=== PATIENT | female | born 1950 | race Caucasian/White ===

== ENCOUNTER 2016-10-01 15:01 | Outpatient (CLI) | payer OTHER | END 2016-10-01 15:02 | disposition home or self-care (01) | DX: N20.0 Calculus of kidney (principal) ==

== ENCOUNTER 2017-07-10 09:34 | Outpatient (CLI) | payer OTHER | END 2017-07-10 09:35 | disposition home or self-care (01) | LOC: DI.N 09:34 | PROVIDERS: ATTEND Family Medicine | DX: Z53.9 Procedure and treatment not carried out, unspecified reason (principal) ==

== ENCOUNTER 2017-07-18 11:21 | Outpatient (CLI) | payer OTHER ==
--- NOTE | 2017-07-18 15:24 | Ultrasound Report ---
UNILATERAL RIGHT BREAST ULTRASOUND: 07/18/2017 INDICATION: Right breast pain, somewhat focal. TECHNIQUE: Sonographic evaluation of the right axilla down to the right breast was performed in the a anson of pain approximately 11 o'clock position. FINDINGS: No mass, dilated ducts, or other abnormalities are demonstrated on ultrasound. IMPRESSION: 1. BIRADS CATEGORY 1-NEGATIVE. 2. RECOMMEND ANNUAL SCREENING MAMMOGRAM. JOB #: [id number] EXT JOB #:[id number]
--- NOTE | 2017-07-18 15:32 | Mammography Report ---
DIGITAL BILATERAL DIAGNOSTIC MAMMOGRAM AND RIGHT BREAST ULTRASOUND: 07/18/2017 COMPARISON: Mammogram of 07/08/2016. INDICATION: Right axilla and right breast pain. TECHNIQUE: Bilateral MLO and CC breast views. Focused sonography of the right breast at approximately 11 o'clock in the axilla down to the breast. FINDINGS: The breast parenchyma is heterogeneously dense which may limit the sensitivity of mammography. There are stable postoperative changes of the right breast. A marker had been placed about the outer upper right breast near the axilla. No dominant mass, architectural distortion, or concerning cluster of microcalcifications are seen. Focused sonography of the right breast at approximately 11 o'clock in the area of concern shows no ma ss or other focal abnormality. IMPRESSION: 1. BIRADS CATEGORY 1-NEGATIVE. NEGATIVE IMAGING DOES NOT PRECLUDE THE FURTHER WORKUP OF A CLINICALLY CONCERNING ABNORMALITY. PLEASE CORRELATE CLINICALLY IN THIS REGARD. 2. IN THE ABSENCE OF ADDITIONAL CLINICAL CONCERNS, RECOMMEND ANNUAL SCREENING MAMMOGRAPHY. STANDARD QUALIFYING STATEMENTS 1. This examination was reviewed with the aid of Computer-Aided Detection (CAD). 2. A negative or benign imaging report should not delay biopsy if clinically suspicious findings are present. Consider surgical consultation if warranted. More than 5% of cancers are not identified by pawan brock. 3. Dense breasts may obscure an underlying neoplasm. JOB #: [id number] EXT JOB #:[id number]
== END 2017-07-18 11:22 | disposition home or self-care (01) ==
LOC: DI 11:21
PROVIDERS: ATTEND Family Medicine
DX: N64.4 Mastodynia (principal)
CPT/HCPCS: 76642; 77066

== ENCOUNTER 2018-07-22 11:12 | Outpatient (CLI) | payer MEDICARE, OTHER ==
--- NOTE | 2018-07-23 11:13 | Mammography Report ---
Reason: ANNUAL Procedure Date: 07/22/2018 Accession Number: [id number] / [id number] Procedure: [facility] - Screening Mammo w/Nikolas CPT Code: FULL RESULT: EXAM: Screening Mammo w/Nikolas DATE: 07/22/2018 12:02 AM CLINICAL HISTORY: 67-year-old female with personal history of right breast cancer status post lumpectomy with axillary node resection and radiation in 2003. TECHNIQUE: Bilateral CC and MLO views were obtained. COMPARISON: 07/18/2017, 07/08/2016, 09/01/2015, 07/19/2014. FINDINGS: The breasts demonstrate heterogeneously dense fibroglandular parenchyma bilaterally. Posttreatment changes are again seen in the right breast. No suspicious masses, clustered microcalcifications, or regions of architectural distortion are identified. IMPRESSION: Benign findings RECOMMENDATION: Routine annual screening unless otherwise clinically indicated. BIRADS CATEGORY 2: Benign findings STANDARD QUALIFYING STATEMENTS: 1. This examination was not reviewed with the aid of Computer-Aided Detection (CAD). 2. A negative or benign imaging report should not delay biopsy if clinically suspicious findings are present. Consider surgical consultation if warrented. More than 5% of cancers are not identified by imaging. 3. Dense breasts may obscure an underlying neoplasm. 4. This examination was reviewed with the aid of 3D breast imaging (tomosynthesis).
== END 2018-07-22 11:13 | disposition home or self-care (01) ==
LOC: DI 11:12
DX: Z12.31 Encounter for screening mammogram for malignant neoplasm of breast (principal); Z85.3 Personal history of malignant neoplasm of breast
CPT/HCPCS: 77063; 77067

== ENCOUNTER 2018-08-28 15:28 | Outpatient (CLI) | payer MEDICARE, OTHER | END 2018-08-28 15:29 | disposition home or self-care (01) | LOC: RT 15:28 | PROVIDERS: ATTEND Internal Medicine Cardiovascular Disease | DX: I47.1 Supraventricular tachycardia (principal) | CPT/HCPCS: 93005 ==

== ENCOUNTER 2019-10-26 08:58 | Outpatient (CLI) | payer MEDICARE, OTHER ==
--- NOTE | 2019-10-27 11:53 | Mammography Report ---
Reason: ROUTINE MAMMO Procedure Date: 10/26/2019 Accession Number: [id number] / [id number] Procedure: [facility] - Screening Mammo w/Nikolas CPT Code: Final Report FULL RESULT: EXAM: Screening Mammo w/Nikolas DATE: 10/26/2019 9:42 AM CLINICAL HISTORY: Prior right lumpectomy for breast cancer with radiation and chemotherapy. TECHNIQUE: (B) - Bilateral CC and MLO views were obtained. COMPARISON: 07/22/2018, 07/18/2017, 07/08/2016, 09/01/2015, 07/19/2014, 07/14/2013, 07/09/2012 and 07/05/2011 PARENCHYMAL PATTERN: (A) - The breasts demonstrate scattered fibroglandular densities bilaterally. FINDINGS: No significant interval change. Post therapy changes right breast similar to previous. There are no new suspicious masses, calcifications, or areas of distortion. IMPRESSION: Benign findings. BI-RADS category 2. RECOMMENDATION: (ANNUAL) - Recommend routine annual screening mammography. BI-RADS CATEGORY: (2) - Benign Findings. STANDARD QUALIFYING STATEMENTS: 1. This examination was not reviewed with the aid of Computer-Aided Detection (CAD). 2. A negative or benign imaging report should not preclude biopsy if clinically suspicious findings are present. 3. Dense breasts may obscure an underlying neoplasm. 4. This examination was reviewed with the aid of 3D breast imaging (tomosynthesis).
== END 2019-10-26 08:59 | disposition home or self-care (01) ==
LOC: DI 08:58
PROVIDERS: ATTEND Family Medicine
DX: Z12.31 Encounter for screening mammogram for malignant neoplasm of breast (principal); Z85.3 Personal history of malignant neoplasm of breast; Z92.21 Personal history of antineoplastic chemotherapy; Z92.3 Personal history of irradiation
CPT/HCPCS: 77063; 77067

== ENCOUNTER 2019-10-26 08:59 | Outpatient (CLI) | payer MEDICARE, OTHER ==
--- NOTE | 2019-10-27 10:46 | DEXA Report ---
Reason: POSTMENOPAUSAL Procedure Date: 10/26/2019 Accession Number: [id number] / [id number] Procedure: DEX - Dexa Spine and/or Hip CPT Code: Final Report FULL RESULT: EXAM: Dexa Spine and/or Hip DATE: 10/26/2019 9:20 AM CLINICAL HISTORY: POSTMENOPAUSAL TECHNIQUE: Dual energy x-ray absorptiometry (DXA) was performed on a [employer] System. Regions measured are the AP Spine, femoral neck, and if needed forearm. COMPARISON: None. In accordance with the International Society for Clinical Densitometry (ISCD) guidelines, data from previous exams may be reanalyzed using current recommendations and techniques. This is done to allow a more accurate basis for comparison with the current study. FINDINGS: The data for the lumbar spine is as follows: BMD (g/cm/cm) T-SCORE Z-SCORE REGION L1 0.963 -1.4 0.2 L2 0.975 -1.9 -0.3 L3 1.148 -0.4 1.1 L4 1.066 -1.1 0.5 TOTAL 1.042 -1.1 0.4 NOTE: All evaluable vertebrae are used for classification The data for the hip is as follows: BMD (g/cm/cm) T-SCORE Z-SCORE REGION Neck 0.831 -1.5 0.1 TOTAL 0.806 -1.6 -0.3 NOTE: The femoral neck or total proximal femur, whichever is lowest, is used for classification. IMPRESSION: THE WHO CLASSIFICATION BASED ON THE INTERNATIONAL REFERENCE STANDARD IS OSTEOPENIA, REFERENCE TOTAL LEFT HIP. THE FRACTURE RISK IS INCREASED. RECOMMENDATION: Patients with diagnosis of osteoporosis or osteopenia should have regular bone mineral density assessment. For those eligible for Medicare, routine testing is allowed once every 2 years. Testing frequency can be increased for patients who have rapidly progressing disease or for those who are receiving medical therapy to restore bone mass. COMMENT: World Health Organization (WHO) definitions for osteoporosis and osteopenia: NORMAL BMD: T-score at -1.0 or higher, fracture risk is low OSTEOPENIA BMD: T-score between -1.0 and -2.5, fracture risk is increased. OSTEOPOROSIS BMD: T-score at -2.5 or lower, fracture risk is high. National Osteoporosis Foundation recommends: 1. Obtain adequate dietary calcium (at least 1200 mg per day) and vitamin D (400-800 international units per day). 2. Participate, as appropriate, in regular weightbearing and muscle-strengthening exercise. 3. Avoid tobacco use and reduce alcohol and caffeine intake. 4. For more detailed information see the website at www.NOF.org.
== END 2019-10-26 09:00 | disposition home or self-care (01) ==
LOC: DI 08:59
PROVIDERS: ATTEND Family Medicine
DX: M85.89 Other specified disorders of bone density and structure, multiple sites (principal); Z78.0 Asymptomatic menopausal state
CPT/HCPCS: 77080

== ENCOUNTER 2020-10-24 09:55 | Outpatient (CLI) | payer MEDICARE, OTHER ==
--- NOTE | 2020-10-25 14:59 | Mammography Report ---
BILATERAL DIGITAL SCREENING MAMMOGRAM 3D/2D: 10/24/2020 CLINICAL: Routine screening. Personal history of right breast cancer. Comparison is made to exams dated: 10/26/2019 mammogram, 07/22/2018 mammogram, 07/18/2017 mammogram, 1 ultrasound, 07/08/2016 mammogram - [facility], and 09/01/2015 mammogram - [facility]. There are scattered fibroglandular elements in both breasts. There are benign post operative findings in the right breast. No significant masses, calcifications, or other findings are seen in either breast. There has been no significant interval change. IMPRESSION: BENIGN There is no mammographic evidence of malignancy. A 1 year screening mammogram is recommended. This exam was interpreted at Station ID: [id number]. NOTE: For mammograms, a report in lay terms will be sent to the patient. Approximately 15% of breast malignancies will not be visualized mammographically. In the management of a palpable breast mass, a negative mammogram must not discourage biopsy of a clinically suspicious lesion. Electronically Signed By: Jacques Bo M.D. ddp/penrad:10/24/2020 13:26:51 ACR BI-RADS Category 2: Benign Finding(s) 3342F PARENCHYMAL PATTERN: (A) - The breast(s) demonstrate(s) scattered fibroglandular densities. BI-RADS CATEGORY: (2) - 2 RECOMMENDATION: (ANNUAL) - Recommend routine annual screening mammography. [id number] 1 year screening LATERALITY: (B)
== END 2020-10-24 09:56 | disposition home or self-care (01) ==
LOC: DI.N 09:55
DX: Z12.31 Encounter for screening mammogram for malignant neoplasm of breast (principal); Z08 Encounter for follow-up examination after completed treatment for malignant neoplasm; Z85.3 Personal history of malignant neoplasm of breast

== ENCOUNTER 2021-11-14 14:04 | Outpatient (CLI) | payer MEDICARE, OTHER ==
--- NOTE | 2021-11-15 11:41 | Mammography Report ---
BILATERAL DIGITAL SCREENING MAMMOGRAM 3D/2D WITH EXAGGERATED CC: 11/14/2021 CLINICAL: Routine screening. Routine screening. Personal history of right breast cancer. Comparison is made to exams dated: 10/24/2020 mammogram, 10/26/2019 mammogram, 07/18/2017 mammogram, and 07/08/2016 mammogram - [facility]. There are scattered fibroglandular elements in both breasts. There are benign post operative findings in the right breast. No significant masses, calcifications, or other findings are seen in either breast. There has been no significant interval change. IMPRESSION: BENIGN There is no mammographic evidence of malignancy. A 1 year screening mammogram is recommended. This exam was interpreted at Station ID: [id number]. NOTE: For mammograms, a report in lay terms will be sent to the patient. Approximately 15% of breast malignancies will not be visualized mammographically. In the management of a palpable breast mass, a negative mammogram must not discourage biopsy of a clinically suspicious lesion. Electronically Signed By: Larry harmon/camacho:11/15/2021 09:53:26 ACR BI-RADS Category 2: Benign Finding(s) 3342F PARENCHYMAL PATTERN: (A) - The breast(s) demonstrate(s) scattered fibroglandular densities. BI-RADS CATEGORY: (2) - 2 RECOMMENDATION: (ANNUAL) - Recommend routine annual screening mammography. [id number] 1 year screening LATERALITY: (B)
== END 2021-11-14 14:05 | disposition home or self-care (01) ==
LOC: DI.S 14:04
DX: Z12.31 Encounter for screening mammogram for malignant neoplasm of breast (principal); Z85.3 Personal history of malignant neoplasm of breast

== ENCOUNTER 2022-11-01 12:52 | Outpatient (CLI) | payer MEDICARE, OTHER ==
--- NOTE | 2022-11-04 09:50 | Mammography Report ---
BILATERAL DIGITAL SCREENING MAMMOGRAM 3D/2D WITH EXAGGERATED CC: 11/01/2022 CLINICAL: Routine screening. Personal history of right breast cancer. Comparison is made to exams dated: 11/14/2021 mammogram, 10/24/2020 mammogram, 10/26/2019 mammogram, 06/24 mammogram, 07/18/2017 mammogram, and 07/08/2016 mammogram - [facility]. There are scattered areas of fibroglandular density in both breasts (category b / 25%-50% glandular t issue). There are benign post operative findings in the right breast. No significant masses, calcifications, or other findings are seen in either breast. There has been no significant interval change. IMPRESSION: BENIGN There is no mammographic evidence of malignancy. A 1 year screening mammogram is recommended. This exam was interpreted at Station ID: [id number]. NOTE: For mammograms, a report in lay terms will be sent to the patient. Approximately 15% of breast malignancies will not be visualized mammographically. In the management of a palpable breast mass, a negative mammogram must not discourage biopsy of a clinically suspicious lesion. Electronically Signed By: Efren Higginbotham M.D., jr/camacho:11/01/2022 15:11:18 ACR BI-RADS Category 2: Benign Finding(s) 3342F PARENCHYMAL PATTERN: (A) - The breast(s) demonstrate(s) scattered fibroglandular densities. BI-RADS CATEGORY: (2) - 2 RECOMMENDATION: (ANNUAL) - Recommend routine annual screening mammography. [id number] 1 year screening LATERALITY: (B)
== END 2022-11-01 12:53 | disposition home or self-care (01) ==
LOC: DI 12:52
PROVIDERS: ATTEND Internal Medicine
DX: Z12.31 Encounter for screening mammogram for malignant neoplasm of breast (principal); Z85.3 Personal history of malignant neoplasm of breast

== ENCOUNTER 2023-01-08 09:04 | Outpatient (CLI) | payer MEDICARE, OTHER ==
--- NOTE | 2023-01-08 15:44 | MRI Report ---
PROCEDURE: MRI brain without contrast INDICATIONS: MEMORY IMPAIRMENT TECHNIQUE: Noncontrast axial T1 spin echo, axial T2 fast spin echo, sagittal and axial FLAIR, coronal T2 fast sp in echo, axial gradient echo, axial diffusion and ADC through the brain. COMPARISON: None. FINDINGS: Image quality: Excellent. CSF Spaces: Basal cisterns are patent. No extra-axial fluid collections. Ventricles are normal in size and shape. Brain: No intracranial masses or hemorrhage. Wilder/white matter interface is normal. Brainstem appe ars normal. Diffusion-weighted images demonstrate no acute infarct. Normal intravascular flow voids are present. Mild generalized atrophy and chronic ischemic change present. Skull and face: Calvarium has normal marrow signal. Orbits appear normal. Sinuses: Sinuses and mastoids are clear. Incidental pneumatization of the left IMPRESSION: 1. Mild atrophy and white matter chronic ischemic change without intracranial hemorrhage, infarct or mass lesion Reviewed by: Wilner Jama MD on 01/08/2023 2:42 PM [facility] Approved by: Wilner Jama MD on 01/08/2023 2:42 PM [facility] Station ID: [id number]
== END 2023-01-08 09:05 | disposition home or self-care (01) ==
LOC: DI 09:04
PROVIDERS: ATTEND Internal Medicine
DX: R41.3 Other amnesia (principal)

== ENCOUNTER 2023-07-28 08:00 | Outpatient (CLI) | payer MEDICARE, OTHER ==
[2023-07-28 07:58] LABS: CREATININE 0.7 mg/dL (0.6-1.3)
== END 2023-07-28 23:56 | disposition home or self-care (01) ==
LOC: LAB 08:00
PROVIDERS: ATTEND Internal Medicine
DX: Z79.899 Other long term (current) drug therapy (principal)
CPT/HCPCS: 36415; 82565

== ENCOUNTER 2023-08-05 08:12 | Outpatient (CLI) | payer MEDICARE, OTHER ==
--- NOTE | 2023-08-06 12:06 | CT Report ---
PROCEDURE: CHEST W INDICATIONS: EXCESSIVE WEIGHT LOSS CONTRAST: 100ml omni 300 TECHNIQUE: After the administration of intravenous contrast, 1 mm axial images were acquired from the pulmonary apices through the posterior costophrenic angles. Axial 5 mm soft tissue kernel reconstructions were performed as well as 8 mm axial MIP and coronal and sagittal 5 mm reformations. For radiation dose reduction, the following was used: automated exposure control, adjustment of mA and/or kV according to patient size. COMPARISON: None. FINDINGS: Image quality: Excellent. Lungs and pleura: There is a 4 mm subsolid nodule in the anterior left lower lobe (series 3 image 250 ), which was present on 10/01/2016, previously measuring 2 mm. No consolidation. No pleural effusions. No pneumothorax. No suspicious pulmonary nodules which require follow up. Mediastinum: Heart size is normal. No pericardial effusion. No large vessel abnormality. No mediastin al adenopathy by size criteria. Chest wall and lower neck: There is a 7 mm right thyroid nodule. No axillary or supraclavicular adeno saba by size. Mild pectus excavatum. Bones: No aggressive osseous abnormality. Degenerative changes are noted in thoracic and upper lumbar spine. Upper Abdomen: Bilateral adrenal thickening. IMPRESSION: 1. A cause for weight loss is not identified on chest CT. 2. A 4 mm; subsolid nodule in the anterior left lower lobe, which was present on 2017. It is slightly enlarged. Slow growth suggests benign etiology. Please see enclosed follow-up recommendation. 3. A 7 mm right thyroid nodule. Please correlate with thyroid function tests. Consider thyroid ultras ound for follow-up. Fleischner Society criteria for SUB-SOLID lung nodule followup. Solitary pure ground-glass nodules 5 mm or lessNo followup needed. >5 mm3 mo follow-up CT to confirm persistence. Then annual CT for 3 years. Part-solid nodules3 mo follow-up CT to confirm persistence. If persistent with solid component <5 mm , annual CT for at least 3 years. If solid component is 5 mm or more, biopsy or surgical resection. Consider PET-CT for lesions > 10 mm. Multiple sub-solid nodules Pure ground glass nodules [address] at 2 and 4 years. Pure ground glass nodules >5 mm without dominant lesion. [address] to confirm persistence, then annual followup CT for at least 3 years. Dominant nodule(s) with part-solid or solid component. [address] to confirm persistence. If persistent, consider biopsy or surgical resection, marci if lesions have >5 mm solid component. Reviewed by: Julianne Bay MD on 08/06/2023 12:05 PM PST Approved by: Julianne Bay MD on 08/06/2023 12:05 PM PST Station ID: [id number]
--- NOTE | 2023-08-06 12:30 | CT Report ---
PROCEDURE: ABDOMEN/PELVIS W INDICATIONS: EXCESSIVE WEIGHT LOSS CONTRAST: 100ml omni 300 TECHNIQUE: After the administration of oral and IV contrast, 5 mm thick sections acquired from the diaphragms to the symphysis. 5 mm thick coronal and sagittal reformats were acquired. For radiation dose reducti on, the following was used: automated exposure control, adjustment of mA and/or kV according to moose ent size. COMPARISON: CT abdomen and pelvis, 10/01/2016. FINDINGS: Image quality: Excellent. Lung bases and heart: Please see separate CT chest report. Liver: Prominent in size. Mild hepatic steatosis. No solid mass. Gallbladder and biliary tree: Normal gallbladder. No gallstones. No biliary dilation. Spleen: No splenomegaly. Pancreas: No pancreatic ductal dilation. Adrenals: Mild bilateral adrenal thickening. No discrete adrenal nodule. Kidneys and ureters: There are multiple nonobstructive renal calculi bilaterally. No hydronephrosis. No renal cystic lesion which requires follow up. No solid mass. Bowel and peritoneum: Gastric wall appears thickened although stomach is not adequately distended. No bowel distension. No pathologic free fluid. There is a large amount of stool in colon and rectum. Lymph nodes: No central or retroperitoneal adenopathy. Vessels: No infrarenal aortic aneurysm. Mild atherosclerotic calcifications. PELVIS Reproductive organs: Unremarkable. Bladder: No abnormal wall thickening, accounting for underdistension. Pelvic lymph nodes: No pelvic adenopathy by size criteria. Bones: No aggressive osseous abnormality. Grade 1 anterolisthesis of L4 on L5 and L5 on S1. Other: No significant ventral or inguinal hernia. IMPRESSION: 1. Appearance of thickening of gastric wall although stomach is not adequately distended. Differentia l diagnoses are gastritis, gastric lymphoma or gastric cancer. Recommend EGD for further evaluation. 2. Mild hepatomegaly and hepatic steatosis. 3. A large amount of stool in colon and rectum. 4. Bilateral nonobstructive renal calculi. Reviewed by: Julianne Bay MD on 08/06/2023 12:29 PM PST Approved by: Julianne Bay MD on 08/06/2023 12:29 PM PST Station ID: [id number]
== END 2023-08-05 08:13 | disposition home or self-care (01) ==
LOC: DI 08:12
PROVIDERS: ATTEND Internal Medicine
DX: R63.4 Abnormal weight loss (principal); R63.0 Anorexia; R91.1 Solitary pulmonary nodule; E04.1 Nontoxic single thyroid nodule; R16.0 Hepatomegaly, not elsewhere classified; K76.0 Fatty (change of) liver, not elsewhere classified; N20.0 Calculus of kidney

== ENCOUNTER 2023-08-28 12:27 | Outpatient (CLI) | payer MEDICARE, OTHER ==
--- NOTE | 2023-08-28 16:29 | Ultrasound Report ---
PROCEDURE: Head or Neck Soft Tissue INDICATIONS: THYROID NODULE TECHNIQUE: Real-time scanning was performed of the thyroid gland, with image documentation. COMPARISON: None FINDINGS: Right: Thyroid lobe measures 3.8 x 1.4 x 1.2 cm, and is homogeneous in echotexture. Left: Thyroid lobe measures 2.8 x 0.8 x 0.8 cm, and is homogenous in echotexture. Isthmus: 2 mm thick. Nodule number: One Location: Right superior pole Size: 0.6 x 0.4 x 0.4 cm. Composition: Solid (2 points). Echogenicity: Isoechoic (1 point). Shape: wider than tall (0 points). Margins: Smooth (0 points). Echogenic foci: None (0 points). Total points: 3 ACR TI-RADS category: TI-RADS 3: Mildly suspicious. Nodule number: Two Location: Right superior pole Size: 1.0 x 0.5 x 0.8 cm. Composition: Solid (2 points). Echogenicity: Isoechoic (1 point). Shape: wider than tall (0 points). Margins: Ill-defined (0 points). Echogenic foci: None (0 points). Total points: 3 ACR TI-RADS category: TI-RADS 3: Mildly suspicious. Nodule number: Three Location: Right inferior pole Size: 0.3 x 0.3 x 0.2 cm. Composition: Cystic / almost completely cystic (0 points). Echogenicity: Anechoic (0 points). Shape: wider than tall (0 points). Margins: Smooth (0 points). Echogenic foci: None (0 points). Total points: 0 ACR TI-RADS category: TI-RADS 1: Benign. Nodule number: Four Location: Left inferior pole Size: 0.6 x 1.0 x 0.4 cm. Composition: Solid. Echogenicity: Hypoechoic (2 points). Shape: wider than tall (0 points). Margins: Smooth (0 points). Echogenic foci: None (0 points). Total points: 2 ACR TI-RADS category: TI-RADS 2: Not suspicious. IMPRESSION: Multiple nodules as above. Recommend follow-up ultrasound in one year as per below recom mendations. ACR TI-RADS definitions and recommendations: TI-RADS 1 (benign): 0 points. FNA not needed. TI-RADS 2 (not suspicious): 2 points. FNA not needed. TI-RADS 3 (mildly suspicious): 3 points. "FNA if 2.5 cm or larger, follow up if 1.5 cm or larger (at 1, 3, and 5 years). TI-RADS 4 (moderately suspicious): 4-6 points. "FNA if 1.5 cm or larger, follow up if 1 cm or larger (at 1, 2, 3, and 5 years). TI-RADS 5 (highly suspicious): 7 points or more. "FNA if 1 cm or larger, follow up if 0.5 cm or larger (every year for 5 years). Reviewed by: Patrick Abreu on 08/28/2023 4:28 PM PST Approved by: Patrick Abreu on 08/28/2023 4:28 PM [facility] Station ID: [id number]
== END 2023-08-28 12:28 | disposition home or self-care (01) ==
LOC: DI 12:27
PROVIDERS: ATTEND Internal Medicine
DX: E04.2 Nontoxic multinodular goiter (principal)

== ENCOUNTER 2023-11-13 10:11 | Outpatient (CLI) | payer MEDICARE, OTHER ==
--- NOTE | 2023-11-14 08:39 | Mammography Report ---
BILATERAL DIGITAL SCREENING MAMMOGRAM 3D/2D: 11/13/2023 CLINICAL: Routine screening. Personal history of right breast cancer. Comparison is made to exams dated: 11/01/2022 mammogram, 11/14/2021 mammogram, 10/24/2020 mammogram, 10/26 mammogram, 07/22/2018 mammogram, and 07/18/2017 mammogram - [facility]. There are scattered areas of fibroglandular density in both breasts (category b / 25%-50% glandular t issue). There are benign post operative findings in the right breast. No significant masses, calcifications, or other findings are seen in either breast. There has been no significant interval change. IMPRESSION: BENIGN There is no mammographic evidence of malignancy. A 1 year screening mammogram is recommended. This exam was interpreted at Station ID: [id number]. NOTE: For mammograms, a report in lay terms will be sent to the patient. Approximately 15% of breast malignancies will not be visualized mammographically. In the management of a palpable breast mass, a negative mammogram must not discourage biopsy of a clinically suspicious lesion. Electronically Signed By: Demetris connelly/camacho:11/13/2023 11:53:17 letter sent: No_Letter ACR BI-RADS Category 2: Benign Finding(s) 3342F PARENCHYMAL PATTERN: (A) - The breast(s) demonstrate(s) scattered fibroglandular densities. BI-RADS CATEGORY: (2) - 2 Mammogram [id number] 1 year screening LATERALITY: (B)
== END 2023-11-13 10:12 | disposition home or self-care (01) ==
LOC: DI 10:11
DX: Z12.31 Encounter for screening mammogram for malignant neoplasm of breast (principal); Z85.3 Personal history of malignant neoplasm of breast; R92.323 Mammographic fibroglandular density, bilateral breasts